=== PATIENT | male | born 1940 | race Caucasian/White ===

== ENCOUNTER → 2016-10-06 | Outpatient (CLI) | payer MEDICARE, BC ==
[~2016-10-06] MED LIST: COZAAR100 MG PO; DULOXETINE HCL60 MG PO; ECOTRIN325 MG PO; FISH OIL 1,2001 EAC2 PO; GLUCOPHAGE500 MG PO; GLUCOTROL PO; LASIX20 MG PO; MELOXICAM7.5 MG; METOPROLOL TAR25 MG; MYCELEX10 MG MT; NEURONTIN300 MG PO; NILSTAT PO; NORCO 7.5-3251 EACH PO; OMEPRAZOLE20 M1 PO; PHYSICIANS1000 MCG/1 INJ; POTASSIUM; POTASSIUM99 M2 PO; PRAMIPEXOLE DIHY1 MG PO; SIMVASTATIN40 MG PO; STIOLTO RESPIMAT4 GM; [UNRECOGNIZED DRUG - REMARK]
--- NOTE | ~2016-10-06 | CO ---
Unit #: [id number] #: [id number] Patient: CONNIE ALVARADO [id number] [address] [place], [place] [address] [id number] O MR#: [id number] NAME: CONNIE ALVARADO ROOM: Age: 75 Sex: M Admission Date: 10/06/2016 : 1940 Attending Physician: Eddie Stone M.D. Primary Care Physician: Archie Leyva M.D. Consultation Date: 10/06/2016 CONSULTATION REPORT REASON FOR CONSULTATION Preoperative medical evaluation prior to right total knee revision scheduled by Dr. Stone for 10/18/16. HISTORY OF PRESENT ILLNESS Patient is a 75-year-old, male who presents to preprocedure screening for the reasons indicated above. Patient complains of right knee pain at the time of the interview, but has no additional complaints at this time. He denies upper chest, upper back, arm, neck, jaw pain or pressure; lightheadedness; dizziness; presyncope; syncope; palpitations; shortness of air; or dyspnea on exertion. He has sleep apnea and is compliant with CPAP at home. Denies history of myocardial infarction, congestive heart failure, CVA, TIA, or kidney disease. He has type 2 diabetes mellitus, non-insulin dependent. He has been evaluated by Dr. Stone and scheduled for the above-referenced procedure. PAST MEDICAL HISTORY Osteoarthritis; type 2 diabetes mellitus, non-insulin dependent; COPD; hypertension; hyperlipidemia; coronary artery disease, status post stent placement, without history of myocardial infarction; obesity, BMI 34; tobacco use; CARLITOS compliant with CPAP; GERD; and history of iron deficiency anemia. PAST SURGICAL HISTORY 1. Bilateral knee arthroplasties. 2. Abdominal aortic aneurysm repair. 3. Right carpal tunnel release. 4. Left arm fracture repair. 5. Cholecystectomy. 6. Cardiac stent placement. 7. Tonsillectomy. 8. Cataract extraction. Patient denies a personal and family history of complications to anesthesia. ALLERGIES Denies latex allergy. No known drug allergies. CURRENT MEDICATIONS 1. Stiolto Respimat inhalation spray 2 puffs daily. 2. Omeprazole 20 mg p.o. at noon. 3. Cyanocobalamin 1000 mcg injected monthly. Unit #: [id number] #: [id number] Patient: CONNIE ALVARADO 4. Mycelex 10 mg t.i.d. 5. Klor-Con 550 mg daily at noon. 6. Ecotrin 325 mg p.o. at noon. 7. Pramipexole dihydrochloride 1 mg p.o. b.i.d. 8. Cymbalta 60 mg p.o. daily. 9. Cozaar 100 mg p.o. daily. 10. Metoprolol tartrate 25 mg p.o. b.i.d. 11. Simvastatin 40 mg p.o. at bedtime. 12. [place] 7.5-325 mg tab 1 p.o. t.i.d. 13. Glucophage 250 mg p.o. b.i.d. 14. Glipizide 2.5 mg p.o. before breakfast. 15. Compound diabetic foot cream to affected areas. 16. Meloxicam 7.5 mg daily at noon. 17. Neurontin 300 mg p.o. at bedtime. SOCIAL HISTORY Smoked cigarettes, 2 packs per day, for 60 years. REVIEW OF SYSTEMS A 10-point review of systems is conducted and negative, except as indicated under history of present illness above. PHYSICAL EXAMINATION GENERAL: 75-year-old, male appears sleepy, but responsive. Seated in wheelchair in no acute distress. VITAL SIGNS: Temperature 98.1, heart rate 84, respirations 18, blood pressure 121/67, oxygen saturation 92% on room air. HEENT: Atraumatic and normocephalic. Sclerae anicteric. No discharge from mouth, ears, or nares. LYMPH: No preauricular, postauricular, tonsillar, submental, anterior, posterior, cervical, supra or infraclavicular adenopathy. ENDOCRINE: No thyromegaly, thyroid nodules, or tenderness. RESPIRATORY: Clear to auscultation in all maza bilaterally without wheezes, rhonchi, or rales. CARDIOVASCULAR: S1 and S2 regular rate and rhythm without murmur or rub. GI: Bowel sounds positive x4. Soft, nontender, and nondistended. EXTREMITIES: 2+ bilateral lower extremity edema without cyanosis or clubbing. MUSCULOSKELETAL: Strength 5/5 in all extremities bilaterally flexion/extension. NEURO: Appears sleepy. Responds to questions appropriately. Cranial nerves, II-XII, grossly intact. Follows instructions for examination. DIAGNOSTIC STUDIES LABORATORY: WBC 7.9, hemoglobin 14.4, hematocrit 44.6, platelets 234,000. Sed rate 7. Sodium 137, potassium 4.6, chloride 99, CO2 28, glucose 98, BUN 14, creatinine 0.8, calcium 9.6, AST 20, ALT 17, alkaline phos. 121, bili total 0.5, total protein 6.5, albumin 4, C reactive protein 1. Hemoglobin A1c 5.8. PT 9.7, INR 0.9. Urinalysis negative with neither microscopic nor culture indicated. Blood type 0+. Antibody screen negative. MRSA nasal swab report pending at this time. IMAGING: Two-view chest x-ray pending at this time. CARDIOLOGY: 12-lead EKG performed through [facility] in [place]: Sinus rhythm with left anterior fascicular block and poor R wave progression. Unit #: [id number] #: [id number] Patient: CONNIE ALVARADO Cardiac stress test pending and is scheduled for 10/14/16 through [facility] in [place]. IMPRESSION The patient is a 75-year-old, male who presents to preprocedure screening for: 1. Preoperative medical evaluation prior to right total knee revision. Patient's Maria Revised Cardiac Risk Index is equal to 0.4% to 1%. This represents the patient's perioperative rate of fatal and nonfatal myocardial infarction, cardiopulmonary arrest, arrhythmia, and/or pulmonary edema. This has been discussed in detail with the patient and he wishes to proceed with surgery as scheduled at this time. Again, the patient is pending preoperative cardiac clearance. 2. Type 2 diabetes mellitus, non-insulin dependent. Hemoglobin A1c is stable today. Will monitor Accu-Cheks, constant carbohydrate diet, sliding scale insulin, and hold oral hypoglycemics. 3. Chronic obstructive pulmonary disease, stable. Will add inhaled bronchodilators if indicated. 4. Hypertension. Will monitor blood pressure trends postoperatively and adjust medications accordingly. 5. Hyperlipidemia. 6. Coronary artery disease, status post stent placement. Will likely place the patient on labels molder postoperatively. 7. Obesity, BMI 34. 8. Tobacco use. I have instructed the patient he will not be able to smoke postoperatively. Will order nicotine transdermal patch if the patient experiences nicotine withdrawal symptoms. 9. Obstructive sleep apnea on CPAP. Patient has been advised to bring his CPAP from home for use on home settings postoperatively. 10. Gastroesophageal reflux disease. Will recommend head of the bed be elevated 30-45 degrees at all times. 11. History of iron deficiency anemia. H and H are stable at this time. Will monitor CBCs postoperatively. Thank you for allowing us to participate in the care of this patient. Will gladly follow the patient for postoperative medical management pending preoperative cardiac clearance and order of Dr. Stone. Dictated by... Nancy Jensen A.P.R.N. for Catherine Vargas M.D. VANESSA/jj TD: 10/07/2016 11:09 JOB #: [id number] CONSULTATION REPORT Page 1 of 1 X Nancy Jensen APRN X CONSULTATION REPORT
--- NOTE | ~2016-10-06 | CR63 ---
[facility] A Service of [facility] RADIOLOGY TEXT RESULTS PATIENT: CONNIE ALVARADO LOCATION: [facility] : 40 UNIT #: [id number] AGE: [address]: Eddie Stone MD SEX: M ORDER DR: [id number] [facility] [address]. [place], [place] [address] [id number] O MR#: [id number] Acc #: [id number] NAME: CONNIE ALVARADO : 1940 SEX: M STUDY DATE/TIME: 10/06/2016 14:24 UNIT: [facility] ROOM: STUDY DESCRIPTION: CR Chest 2 View Attending Physician: Eddie Stone M.D. Referring Physician: Eddie Stone M.D. Ordering Physician: Eddie Stone M.D. Primary Care Physician: Archie Leyva M.D. MEDICAL IMAGING REPORT This report is preliminary unless electronic signature is present EXAM Chest, 10/06/2016; [facility]. HISTORY 75-year-old male patient preop clearance for revision, right total knee arthroplasty. History of diabetes and hypertension. COMPARISON Chest none. FINDINGS Two-view chest demonstrates normal heart size. Hilar structures are preserved. Some distortion of the mediastinum reflects a thoracic kyphoscoliosis. Bilateral lungs are expanded and clear. No comparison chest films available. IMPRESSION 1. No acute chest finding. 2. Thoracic kyphoscoliosis. Dictated by... Castillo Nowak M.D. THIS IS AN ELECTRONICALLY VERIFIED REPORT Castillo Nowak M.D. at 10/07/2016 8:02 AM RADHA/gracia TD: 10/06/2016 19:19 JOB #: [id number] MEDICAL IMAGING REPORT [facility] A Service of [facility] RADIOLOGY TEXT RESULTS PATIENT: CONNIE ALVARADO LOCATION: [facility] : 40 UNIT #: [id number] AGE: [address]: Eddie Stone MD SEX: M ORDER DR: Page 1 of 1 COPY
[2016-10-06 13:00] LABS: URINE APPEARANCE CLEAR; URINE BILIRUBIN NEG (NEG); URINE BLOOD NEG (NEG); URINE COLOR YELLOW; URINE GLUCOSE NEG (NEG); URINE KETONE NEG (NEG); URINE LEUKOCYTE ESTERASE NEG (NEG); URINE NITRATE NEG (NEG); URINE PH 7.5 (5-8); URINE PROTEIN NEG (NEG); URINE SPECIFIC GRAVITY 1.018 (1.003-1.035)
[2016-10-06 13:05] LABS: CULTURE INDICATED? NO
[2016-10-06 13:08] LABS: HEMATOCRIT 44.6 % (38.0-50.0); HEMOGLOBIN 14.4 gm/dL (13.0-16.0); MEAN CELL VOLUME 85.1 FL (83-96); MEAN CORPUSCULAR HEMOGLOBIN 27.4 PG (28-34); MEAN CORPUSCULAR HGB CONC 32.3 g/dL (30-36); MEAN PLATELET VOLUME 8.1 FL (6.5-11.5); RED BLOOD COUNT 5.25 X10e (3.90-5.60); RED CELL DISTRIBUTION WIDTH 24.2 % (11.0-15.5); WHITE BLOOD COUNT 7.9 X10e3 (4.0-10.5)
[2016-10-06 13:24] LABS: INR 0.9; PROTHROMBIN TIME (PATIENT) 9.7 SECONDS (10.0-11.7)
[2016-10-06 13:45] LABS: BILIRUBIN,TOTAL 0.5 mg/dL (0.2-2.0); BUN/CREATININE RATIO 17.5; CALCIUM SERUM 9.6 mg/dL (8.4-10.2); CREATININE SERUM 0.8 mg/dL (0.6-1.4); GLOM FILT RATE Estimated 87.4 mL/min (>60); POTASSIUM 4.6 mmol/L (3.5-5.1); PROTEIN TOTAL SERUM 6.5 g/dL (6.0-8.3)
== END | disposition home or self-care (01) ==
LOC: CAMB 12:13
PROVIDERS: Orthopaedic Surgery
DX: Z01.818 Encounter for other preprocedural examination (principal); T84.092A Other mechanical complication of internal right knee prosthesis, initial encounter; M23.51 Chronic instability of knee, right knee; M41.9 Scoliosis, unspecified
CPT/HCPCS: 36415; 71020; 80053; 81003; 83036; 85027; 85610; 85652; 86140; 86850; 86900; 86901; 87070